=== PATIENT | female | born 1960 | race Caucasian/White ===

== ENCOUNTER 2016-05-11 12:54 | Emergency (ER) | payer BC ==
[2016-05-11 16:23] VITALS: BP 143/67
--- NOTE | 2016-05-11 16:39 | UC ---
Ear Complaint HPI - HPI Summary HPI Summary: congested for 3 weeks, yellow nasal drainage, yellow phlegm with cough. For past few days, progressive left ear pain which is now intolerable. No vomiting. Non smoker. No asthma - History of Current Complaint Chief Complaint: UCGeneralIllness Stated Complaint: SINUS, LEFT EAR PAIN Time Seen by Provider: 05/11/16 16:29 Hx Obtained From: Patient Hx Last Menstrual Period: age 39 Onset/Duration: Gradual Onset Severity Initially: Mild Severity Currently: Severe Aggravating Factors: Nothing Alleviating Factors: Nothing Associated Signs/Symptoms: Positive: URI Symptoms. Negative: Discharge, Hearing Loss, Foreign Body Sensation, Trauma to Ear - Allergies/Home Medications Allergies/Adverse Reactions: Allergies Allergy/AdvReac Type Severity Reaction Status Date / Time Sulfa Antibiotics Allergy Hives Verified 05/11/16 16:23 naproxen Allergy Swelling Uncoded 05/11/16 16:23 Of Face,Lips,& Throat PMH/Surg Hx/FS Hx/Imm Hx Previously Healthy: Yes Cancer History Of: Denies: Breast Cancer - Surgical History Surgical History: Yes Surgery Procedure, Year, and Place: ectopic , laparoscopic knees, b/l knee replacemants, c section, b/l carpal tunnel, - Family History Known Family History: Negative: Respiratory Disease - Social History Occupation: Employed Full-time - teacher Lives: With Family Alcohol Use: Rare Substance Use Type: None Smoking Status (MU): Never Smoked Tobacco Review of Systems Constitutional: Fever - at beginning of illness, 102, Chills, Fatigue Skin: Negative Eyes: Negative ENT: Ear Ache, Nasal Discharge Respiratory: Cough - productive Cardiovascular: Negative Gastrointestinal: Negative Genitourinary: Negative Motor: Negative Neurovascular: Negative Musculoskeletal: Negative Neurological: Negative Psychological: Negative All Other Systems Reviewed And Are Negative: Yes Physical Exam Triage Information Reviewed: Yes Appearance: Well-Appearing, No Pain Distress, Well-Nourished Vital Signs: Initial Vital Signs Temp 99.7 F 05/11/16 16:18 Pulse 92 05/11/16 16:18 Resp 16 05/11/16 16:18 BP 143/67 05/11/16 16:18 Pulse Ox 100 05/11/16 16:18 Vital Signs Reviewed: Yes Eye Exam: Normal ENT: Positive: Hearing grossly normal, Pharynx normal, Nasal congestion, Nasal drainage, TM bulging, TM dull, TM red - left side; blistering appearance on TM. Negative: Tonsillar swelling, Tonsillar exudate, Trismus, Muffled/hoarse voice Neck exam: Normal Neck: Positive: Supple Respiratory Exam: Normal Respiratory: Positive: Lungs clear, Normal breath sounds, No respiratory distress, No accessory muscle use Cardiovascular Exam: Normal Musculoskeletal Exam: Normal Neurological Exam: Normal Psychological Exam: Normal Skin Exam: Normal Ear Complaint Course/Dx - Differential Dx/Diagnosis Differential Diagnosis/HQI/PQRI: Otitis Externa, Otitis Media, URI Provider Diagnoses: left OM Discharge - Discharge Plan Condition: Stable Disposition: HOME Prescriptions: Clarithromycin TAB* [Biaxin TAB*] 500 mg PO BID #20 tab Hydrocodone-Acetaminophen [Hydrocodone/Acetaminophen 5-325 mg] 1 - 2 tab PO Q6HR PRN #14 tab MDD 6 tab PRN Reason: Pain Patient Education Materials: Otitis Media (ED) Referrals: Non Staff,Doctor [Primary Care Provider] -
== END 2016-05-11 16:46 | disposition home or self-care (01) ==
LOC: UCCORT 12:54
DX: H66.92 Otitis media, unspecified, left ear (principal); Z88.6 Allergy status to analgesic agent; Z88.2 Allergy status to sulfonamides
CPT/HCPCS: 99212; G0463

== ENCOUNTER 2016-05-21 14:20 | Emergency (ER) | payer BC ==
[2016-05-21 17:27] VITALS: BP 142/74
--- NOTE | 2016-05-21 17:44 | UC ---
Throat Pain/Nasal Declan HPI - HPI Summary HPI Summary: still having sinus pain/pressure and ear pressure since 10days ago when she was placed on clarithromycin. Did get better, but still feels "like I'm underwater" , headaches, malaise, post-nasal drip. Going to [place] by plane next week, afraid she will have pain when flying. No fever. No vomiting. No cough. - History of Current Complaint Chief Complaint: UCEar Stated Complaint: EAR PAIN Time Seen by Provider: 05/21/16 17:21 Hx Obtained From: Patient Hx Last Menstrual Period: age 39 Onset/Duration: Gradual Onset, Lasting Weeks - 4 Severity: Moderate Cough: None Associated Signs & Symptoms: Positive: Hoarseness, Sinus Discomfort. Negative: Dysphagia, FB Sensation, Drooling, Nasal Discharge, Fever, Vomiting, Rash - Epiglottits Risk Factors Epiglottis Risk Factors: Negative - Allergies/Home Medications Allergies/Adverse Reactions: Allergies Allergy/AdvReac Type Severity Reaction Status Date / Time Sulfa Antibiotics Allergy Hives Verified 05/21/16 17:27 naproxen Allergy Swelling Uncoded 05/21/16 17:27 Of Face,Lips,& Throat PMH/Surg Hx/FS Hx/Imm Hx Previously Healthy: Yes Cancer History Of: Denies: Breast Cancer - Surgical History Surgical History: Yes Surgery Procedure, Year, and Place: ectopic , laparoscopic knees, b/l knee replacemants, c section, b/l carpal tunnel, - Family History Known Family History: Negative: Respiratory Disease - Social History Occupation: Employed Full-time Lives: With Family Alcohol Use: Rare Substance Use Type: None Smoking Status (MU): Never Smoked Tobacco - Immunization History Most Recent Influenza Vaccination: none Review of Systems Constitutional: Fatigue Skin: Negative Eyes: Negative ENT: Ear Ache, Other - sinus pressure Respiratory: Negative Cardiovascular: Negative Gastrointestinal: Negative Genitourinary: Negative Motor: Negative Neurovascular: Negative Musculoskeletal: Negative Neurological: Headache Psychological: Negative All Other Systems Reviewed And Are Negative: Yes Physical Exam Triage Information Reviewed: Yes Appearance: Well-Appearing, No Pain Distress, Well-Nourished Vital Signs: Initial Vital Signs Temp 98.3 F 05/21/16 17:22 Pulse 87 05/21/16 17:22 Resp 17 05/21/16 17:22 BP 142/74 05/21/16 17:22 Pulse Ox 99 05/21/16 17:22 Eye Exam: Normal ENT: Positive: Hearing grossly normal, Pharynx normal, Nasal congestion, TM dull - left side has a yellowish cast, no redness, retracted, Muffled/hoarse voice - muffled, sounds congested. Negative: Nasal drainage, Tonsillar swelling , Tonsillar exudate, Trismus Neck exam: Normal Neck: Positive: Supple, Nontender Respiratory Exam: Normal Respiratory: Positive: Lungs clear Cardiovascular Exam: Normal Musculoskeletal Exam: Normal Neurological Exam: Normal Psychological Exam: Normal Skin Exam: Normal Throat Pain/Nasal Course/Dx - Differential Dx/Diagnosis Differential Diagnosis/HQI/PQRI: Otitis Media, Pharyngitis, Sinusitis, URI Provider Diagnoses: sinusitis Discharge - Discharge Plan Condition: Stable Disposition: HOME Prescriptions: Cephalexin CAP* [Keflex CAP*] 500 mg PO QID #40 cap Fluticasone NASAL SPRAY 50MCG* [Flonase NASAL SPRAY 50MCG*] 2 spray BOTH NARES DAILY #1 btl Patient Education Materials: Sinusitis (ED) Referrals: Non Staff,Doctor [Primary Care Provider] - Additional Instructions: Get Afrin nasal spray (or generic equivalent) for your flight. Put it in your nose before descent to help unblock your ears.
== END 2016-05-21 17:54 | disposition home or self-care (01) ==
LOC: UCCORT 14:20
DX: J32.9 Chronic sinusitis, unspecified (principal); Z96.653 Presence of artificial knee joint, bilateral; Z88.2 Allergy status to sulfonamides; Z88.6 Allergy status to analgesic agent
CPT/HCPCS: 99212; G0463